=== PATIENT | female | born 1985 | race Caucasian/White ===

== ENCOUNTER 2017-01-05 23:16 | Emergency (ER) | payer OTHER ==
[~2017-01-05 23:16] MED LIST: ALBUTEROL0.83 MG/ML INH; ALBUTEROL17 GM INH; AMARYL PO; AMOXIL500 M1 PO; AZITHROMYCIN250 MG PO; AZITHROMYCIN500 MG PO; BUSPAR5 M1; BUSPAR5 M1 PO; CARBATROL300 MG PO; COMBIVENT14.7 GM INH; DELTASONE20 MG PO; FLOVENT; GLIPIZIDE10 MG PO; IPRAT-ALBUT 0.5-3 ML INH; JARDIANCE10 MG; LATUDA40 MG; MONTELUKAST SOD10 MG PO; NEURONTIN; NEURONTIN PO; PHENERGAN12.5 MG PO; PREDNISONE PO; PROMETHAZINE-D240 ML PO; PROTONIX PO; QVAR7.3 G1 INH; SYMBICORT INH; TEGRETOL XR; TESSALON PERLE100 M1 DOB; TYLENOL #3 PO; VICTOZA0.6 MG/0.1 SQ; VOLTAREN50 MG PO; ZITHROMAX PO
== END 2017-01-06 00:50 | disposition home or self-care (01) ==
LOC: SED 23:16
DX: J45.901 Unspecified asthma with (acute) exacerbation (principal); F17.200 Nicotine dependence, unspecified, uncomplicated
CPT/HCPCS: 94640; 96374; 99284; J2930

== ENCOUNTER 2017-02-23 23:49 | Emergency (ER) | payer OTHER ==
[~2017-02-23] VITALS: Ht 170.2 cm; Wt 131.5 kg
[2017-02-24] MEDS ORDERED: WELLBUTRIN PO (00:01)
== END 2017-02-24 03:25 | disposition home or self-care (01) ==
LOC: SED 23:49
DX: G50.0 Trigeminal neuralgia (principal); J45.909 Unspecified asthma, uncomplicated; F31.9 Bipolar disorder, unspecified; F17.210 Nicotine dependence, cigarettes, uncomplicated
CPT/HCPCS: 99283